=== PATIENT | female | born 1980 | race Caucasian/White ===

== ENCOUNTER 2017-08-24 01:45 | Emergency (ER) | payer MEDICAID ==
[~2017-08-24] VITALS: Ht 160 cm; Wt 61.4 kg
[~2017-08-24 01:45] MED LIST: MEDR150V
[2017-08-24 04:21] VITALS: BP 116/68
[2017-08-24] MEDS ORDERED: SODIUM CHLORIDE 0.9% 1,000 ML IV ONE (04:25)
[2017-08-24] MEDS ORDERED: METOCLOPRAMIDE HCL 5 MG/ML 2 ML VIAL IVP ONE (04:30)
[2017-08-24] MEDS ORDERED: KETOROLAC TROMETHAMINE 30 MG/ML VIAL IVP ONE (04:30)
== END 2017-08-24 05:53 | disposition home or self-care (01) ==
LOC: EMS 01:45
DX: G43.909 Migraine, unspecified, not intractable, without status migrainosus (principal)
CPT/HCPCS: 96374; 96375; 99284; J1885; J2765; J7030

== ENCOUNTER 2020-07-23 17:59 | Emergency (ER) | payer MEDICAID ==
[~2020-07-23] VITALS: Ht 165.1 cm; Wt 72.7 kg
[2020-07-23] MEDS ORDERED: ACET-2247 PO (18:06)
[2020-07-23] MEDS ORDERED: KETOROLAC TROMETHAMINE 30 MG/ML VIAL IM ONE (18:45)
[2020-07-23] MEDS ORDERED: METHOCARBAMOL 500 MG TABLET PO ONE (18:45)
[2020-07-23 20:08] VITALS: BP 110/64
== END 2020-07-23 20:29 | disposition home or self-care (01) ==
LOC: EMS 18:01
DX: M54.2 Cervicalgia (principal); M54.5 Low back pain; G43.909 Migraine, unspecified, not intractable, without status migrainosus; E78.00 Pure hypercholesterolemia, unspecified; V49.9XXA Car occupant (driver) (passenger) injured in unspecified traffic accident, initial encounter; Y93.89 Activity, other specified; Y92.89 Other specified places as the place of occurrence of the external cause; Y99.8 Other external cause status
CPT/HCPCS: 72040; 72100; 81025; 96372; 99284; J1885

== ENCOUNTER 2021-07-31 20:43 | Emergency (ER) | payer MEDICAID ==
[~2021-07-31] VITALS: Ht 165.1 cm; Wt 65.9 kg
[~2021-07-31 20:43] MED LIST changes: +ACET-2247 PO; -MEDR150V
[2021-07-31] MEDS ORDERED: IBUPROFEN 600 MG TABLET PO ONE (22:45)
[2021-07-31] MEDS ORDERED: METOCLOPRAMIDE HCL 10 MG TABLET PO ONE (22:45)
[2021-08-01] MEDS ORDERED: ACETAMINOPHEN 325 MG TABLET PO ONE (01:00)
[2021-08-01 01:14] VITALS: BP 119/77
== END 2021-08-01 02:17 | disposition home or self-care (01) ==
LOC: EMS 20:44
DX: R51.9 Headache, unspecified (principal); E78.00 Pure hypercholesterolemia, unspecified; Z79.899 Other long term (current) drug therapy
CPT/HCPCS: 99284; Z7502; Z7610

== ENCOUNTER 2024-05-13 01:49 | Emergency (ER) | payer MEDICAID, OTHER ==
[~2024-05-13] VITALS: Ht 162.6 cm; Wt 68.2 kg
[2024-05-13 02:06] VITALS: TEMP 98.4
[2024-05-13 02:36] LABS: COVID AG,FIA SOURCE NASAL SWAB
[2024-05-13 02:47] LABS: SARS-COV2 (COVID) ANTIGEN,FIA Negative (Negative)
[2024-05-13 02:48] LABS: INFLUENZA TYPE A NEGATIVE FOR TYPE A (NEGATIVE); INFLUENZA TYPE B NEGATIVE FOR TYPE B (NEGATIVE)
[2024-05-13 03:36] LABS: BASOPHILS % (AUTO) 1.2 % (0.0-2.0); HEMATOCRIT 39.1 % (36-46); HEMOGLOBIN 13.3 g/dL (12.0-16.0); LYMPHOCYTES % (AUTO) 28.1 % (22.0-44.0); MEAN CORPUSCULAR HEMOGLOBIN 30.8 pg (26.0-34.0); MEAN CORPUSCULAR HGB CONC 33.9 G/dL (31.0-37.0); MEAN CORPUSCULAR VOLUME 91 fL (80-100); MONOCYTES # (AUTO) 0.5 K/uL (0.1-1.0); MONOCYTES % (AUTO) 6.6 % (2.0-9.0); NEUTROPHILS % (AUTO) 56.1 % (40.0-70.0); PLATELET COUNT (AUTO) 264 K/uL (150-450); RED CELL DISTRIBUTION WIDTH 13.1 % (11.5-14.5); WHITE BLOOD COUNT (AUTO) 7.1 K/uL (4.5-11.0)
[2024-05-13] MEDS: MAG HYDROX/ALUMINUM HYD/SIMETH 30 ML SUSPENSION UDCUP PO ONE (03:44)
[2024-05-13] MEDS: DICYCLOMINE HCL 10 MG CAPSULE PO ONE (03:44)
[2024-05-13 03:47] LABS: ANION GAP 5 mmol/L (8-16); CALCIUM, TOTAL 8.8 mg/dL (8.8-10.5); CARBON DIOXIDE 27 mmol/L (22-29); CHLORIDE 107 mmol/L (98-107); CREATININE 0.66 mg/dL (0.60-1.30); GLOMERULAR FILTR. RATE CALC > 60 mL/min (>60); GLUCOSE,RANDOM 103 mg/dL (70-110); POTASSIUM 4.5 mmol/L (3.5-5.1); SODIUM SERUM 139 mmol/L (136-145); UREA NITROGEN, BLOOD 10 mg/dL (7-18)
[2024-05-13 03:53] LABS: ALBUMIN 3.4 g/dL (3.4-5.0); BILIRUBIN,DIRECT 0.1 mg/dL (0.00-0.20); BILIRUBIN,TOTAL 0.2 mg/dL (0.1-1.0); TOTAL PROTEIN, SERUM 7.2 g/dL (6.4-8.2)
[2024-05-13 03:59] LABS: HCG,QUANTITATIVE < 1 mIU/mL (0-6); LIPASE 58 U/L (16-77)
[2024-05-13] MEDS ORDERED: POLY119P3 PO (04:40)
[2024-05-13 04:48] VITALS: BP 112/71; PULSE 60; RESP 16; O2SAT 98
== END 2024-05-13 04:49 | disposition home or self-care (01) ==
LOC: EMS 01:55
DX: K59.00 Constipation, unspecified (principal); R10.84 Generalized abdominal pain; E78.00 Pure hypercholesterolemia, unspecified; Z98.51 Tubal ligation status; Z20.822 Contact with and (suspected) exposure to COVID-19
CPT/HCPCS: 74018; 80048; 80076; 83690; 84702; 85025; 87804; 99284; 36415-L1; 36415-TC

== ENCOUNTER 2024-12-26 20:44 | Emergency (ER) | payer OTHER ==
[~2024-12-26] VITALS: Ht 162.6 cm; Wt 67.7 kg
[~2024-12-26 20:44] MED LIST changes: +POLY119P3 PO
[2024-12-26 21:09] VITALS: TEMP 97.9
[2024-12-26] MEDS ORDERED: AZEL23SP2 NASAL (22:12)
[2024-12-26] MEDS ORDERED: LORA-726 PO (22:12)
[2024-12-26] MEDS ORDERED: P-EP-24 PO (22:30)
[2024-12-26 22:46] VITALS: BP 101/68; PULSE 73; RESP 17; O2SAT 99
== END 2024-12-26 22:50 | disposition home or self-care (01) ==
LOC: EMS 20:44
DX: J30.9 Allergic rhinitis, unspecified (principal); E78.00 Pure hypercholesterolemia, unspecified; G43.909 Migraine, unspecified, not intractable, without status migrainosus; Z98.890 Other specified postprocedural states; Z79.899 Other long term (current) drug therapy; Z98.51 Tubal ligation status
CPT/HCPCS: 99283; Z7502

== ENCOUNTER 2024-12-31 21:02 | Emergency (ER) | payer OTHER ==
[~2024-12-31] VITALS: Ht 162.6 cm; Wt 70.5 kg
[~2024-12-31 21:02] MED LIST changes: +AZEL23SP2 NASAL; +P-EP-24 PO
[2024-12-31 21:08] VITALS: TEMP 97.9
[2024-12-31] MEDS: LIDOCAINE 5% TRANSDERMAL PATCH TD ONE (23:17)
[2024-12-31] MEDS: IBUPROFEN 400 MG TABLET PO ONE (23:17)
[2024-12-31 23:38] VITALS: BP 111/64; PULSE 68; RESP 16; O2SAT 99
[2024-12-31] MEDS ORDERED: METH-812 PO (23:46)
== END 2025-01-01 00:15 | disposition home or self-care (01) ==
LOC: EMS 21:02
DX: M54.50 Low back pain, unspecified (principal); E78.00 Pure hypercholesterolemia, unspecified; G43.909 Migraine, unspecified, not intractable, without status migrainosus; Z98.890 Other specified postprocedural states; Z98.51 Tubal ligation status; Z79.899 Other long term (current) drug therapy; W19.XXXA Unspecified fall, initial encounter
CPT/HCPCS: 99284; Z7502; Z7610